=== PATIENT | female | born 1990 | race Caucasian/White ===

== ENCOUNTER 2017-02-21 14:31 | Emergency (ER) | payer BC ==
[2017-02-21 15:13] VITALS: BP 138/76
--- NOTE | 2017-02-21 15:38 | UC ---
Laceration HPI - HPI Summary HPI Summary: 26 y/o female presents to the urgent care c/o her LF thumb laceration with a knife pocket by accident. Pt reports it happened 1 hr ago while she was trying to cut a collar. Her pain is 4/10. She thinks her last Tetanus shot was about 5 years ago. She denies, fever, SOB, Chest pain, N/V/D. Pt has not other complain. - History Of Current Complaint Chief Complaint: UCLaceration Stated Complaint: THUMB LAC Time Seen by Provider: 02/21/17 15:27 Hx Obtained From: Patient Laceration Location: Finger - Left thumb avulsion laceration Mechanism Of Injury: Sharp Trauma Onset/Duration: Sudden Onset, Lasting Hours, Still Present Severity: Mild Pain Intensity: 4 Pain Scale Used: 0-10 Numeric Aggravating Factors: Movement Related History: Dominant Hand Right - Allergies/Home Medications Allergies/Adverse Reactions: Allergies Allergy/AdvReac Type Severity Reaction Status Date / Time No Known Allergies Allergy Verified 02/21/17 15:07 Home Medications: Home Medications Spironolactone TAB* [Aldactone TAB*] 25 mg PO DAILY 02/21/17 [History Confirmed 02/21/17] PMH/Surg Hx/FS Hx/Imm Hx Previously Healthy: Yes - Surgical History Surgical History: None - Family History Known Family History: Positive: None - Social History Occupation: Employed Full-time Lives: With Family Alcohol Use: Occasionally Substance Use Type: None Smoking Status (MU): Never Smoked Tobacco - Immunization History Most Recent Tetanus Shot: 5 yrs ago Review of Systems Constitutional: Negative Skin: Negative Eyes: Negative ENT: Negative Respiratory: Negative Cardiovascular: Negative Gastrointestinal: Negative Genitourinary: Negative Motor: Negative Neurovascular: Negative Musculoskeletal: Other: - Left thumb laceration with moderate bleeding Neurological: Negative Psychological: Negative All Other Systems Reviewed And Are Negative: Yes Physical Exam Triage Information Reviewed: Yes Appearance: Well-Appearing, No Pain Distress, Well-Nourished, Thin Vital Signs: Initial Vital Signs Temp 99.4 F 02/21/17 15:08 Pulse 82 02/21/17 15:08 Resp 16 02/21/17 15:08 BP 138/76 02/21/17 15:08 Pulse Ox 100 02/21/17 15:08 Vital Signs Reviewed: Yes Eye Exam: Normal Eyes: Positive: Conjunctiva Clear ENT Exam: Normal ENT: Positive: Normal ENT inspection, Hearing grossly normal, Pharynx normal, TMs normal Dental Exam: Normal Neck exam: Normal Neck: Positive: Supple, Nontender, No Lymphadenopathy Respiratory Exam: Normal Respiratory: Positive: Chest non-tender, Lungs clear, Normal breath sounds Cardiovascular Exam: Normal Cardiovascular: Positive: RRR, No Murmur, Pulses Normal Abdominal Exam: Normal Abdomen Description: Positive: Nontender, No Organomegaly, Soft Bowel Sounds: Positive: Present Musculoskeletal Exam: Normal Musculoskeletal: Positive: Strength Intact, ROM Intact, No Edema Neurological Exam: Normal Psychological Exam: Normal Skin Exam: Normal Skin: Positive: Other - left thumb avulsion laceration on medial aspect. curbolinear in shape, size 3cm. with moderate bleeding. mildly tender on palpation. FROM of thumb, positive capillary refill, sensation intact and positive pulses. Laceration Course/Dx - Course/Dx Course Of Treatment: 26 y/o female presents to the urgent care c/o her LF thumb laceration with a knife pocket by accident. Hx obtained. PE abnormal finding: left thumb avulsion laceration on medial aspect. curbolinear in shape, size 3cm. with moderate bleeding. mildly tender on palpation. FROM of thumb, positive capillary refill, sensation intact and positive pulses. Time out performed and all involved parties agreed to the PT, procedure and laterality. The patient was prepped and draped in usual sterile fachion. . LACERATION PROCEDURE NOTE: Copious irrigation was done with saline and the wound explored. There was no FB or deep structure injury noted. FROM of the the left thumb. Wound edges were approximated with good aligment. The wound was anesthetized with Local anesthesia was obtained with 2 % Lido/epi 2ml used. Sterile drape and prep were done. There were 5 sutures with 5.0 type of suture. The length of the wound after closure was 3 cm. No debridement done. Wound was covered with sterile nonadherent dressing. The Pt tolerated the procedure well without adverse effects. Nerovascular intact and FROM of LF thumb. Pt educated on wound care and Bacitracin oint Rx. Pt requested Ibuprofen in case she developed Pain. Pt understood and agreed. Left clinic ambulating. - Differential Dx - Laceration/Wound Differental Diagnoses: Abrasion, Avulsion, Cellulitis, Foreign Body, Laceration , Puncture Wound, Tendon Laceration Provider Diagnoses: Left thumb laceration. - Physician Notification/Consults Discussed Patient Care With: Parveen Latif - Dr Latif agreed with care and procedure. Discharge - Discharge Plan Condition: Stable Disposition: HOME Prescriptions: Bacitracin OINTMENT* 1 applic TOPICAL TID #1 tube Ibuprofen TAB* [Motrin TAB* 600 MG] 600 mg PO Q6H PRN #20 tab PRN Reason: Pain Patient Education Materials: Care For Your Stitches (ED), Laceration (ED) Referrals: Non Staff,Doctor [Primary Care Provider] - Additional Instructions: Please apply medication as instructed, keep wound clean and dry. Return in 7- 10 days for suture removal. If Symptoms of infection appear please return to the urgent care or f/u with your PCP.
[2017-02-21] MEDS ORDERED: Lidocaine 2% W/EPI 1:100,000* 20 ML MDV INJ ONE (15:43)
[2017-02-21] MEDS ORDERED: Tetan/Diph/Pertus SYR(Tdap)* 0.5 ML SYR(BOOSTRIX) use SYR IM ONE (15:50)
== END 2017-02-21 17:02 | disposition home or self-care (01) ==
LOC: UCCORT 14:31
DX: S61.012A Laceration without foreign body of left thumb without damage to nail, initial encounter (principal); W26.0XXA Contact with knife, initial encounter; Y92.9 Unspecified place or not applicable
CPT/HCPCS: 12002; 90471; 90715; 99202; G0463